=== PATIENT | male | born 1995 | race African-American/Black ===

== ENCOUNTER 2020-07-24 23:19 | Emergency (ER) | payer MEDICAID ==
[~2020-07-24] VITALS: Ht 177.8 cm; Wt 68.0 kg
--- NOTE | 2020-07-24 23:45 | NUR ---
Note jennifer in ED - 07/25/20 at 0005 by MARKOS Patient eloped from facility. ER physician Magdaleno notified.
--- NOTE | 2020-07-24 23:57 | NUR ---
Patient eloped from facility. ER physician Rasta huerta.
== END 2020-07-24 23:57 | disposition left against medical advice (07) ==
LOC: ER 23:28
DX: F41.9 Anxiety disorder, unspecified (principal); J45.909 Unspecified asthma, uncomplicated
CPT/HCPCS: A4663